=== PATIENT | female | born 2000 | race Two or more races ===

== ENCOUNTER 2024-07-30 01:36 | Emergency (ER) | payer OTHER, MEDICAID ==
[~2024-07-30] VITALS: Ht 162.6 cm; Wt 87.4 kg
[2024-07-30 02:13] VITALS: BP 137/81; PULSE 92; RESP 16; TEMP 97.9; O2SAT 100
[2024-07-30] MEDS: cefTRIAXone SOD 1,000 MG VL IM ONE (02:27)
[2024-07-30] MEDS: AZITHROMYCIN 250 MG TAB PO ONE (02:28)
[2024-07-30 02:48] LABS: Urine Bacteria None Seen /hpf (None Seen)
[2024-07-30 03:24] LABS: Urine Blood 3+ /uL (Negative); Urine Clarity Turbid (Clear); Urine Color Light-Brown (Yellow); Urine Mucus FEW (None Seen); Urine Protein, UAD 1+ (Negative); Urine Specific Gravity 1.021 (1.001-1.035); Urine Urobilinogen Normal (Negative); Urine WBC 219 /hpf (0 - 5); Urine pH 6.5 (5.0-9.0)
[2024-07-30] MEDS ORDERED: NITR-87 PO (03:34)
[2024-07-31 21:06] LABS: Chlamydia Trachomatis, NAA Positive (Negative); Neisseria gonorrhoeae, NAA Negative (Negative)
== END 2024-07-30 04:11 | disposition home or self-care (01) ==
LOC: ER 01:36
DX: N39.0 Urinary tract infection, site not specified (principal); Z20.2 Contact with and (suspected) exposure to infections with a predominantly sexual mode of transmission
CPT/HCPCS: 81001; 81025; 87491; 87591; 96372; 99283; J0696